=== PATIENT | female | born 1980 ===

== ENCOUNTER 2017-02-26 16:40 | Emergency (ER) | payer MEDICAID ==
[2017-02-26 16:57] VITALS: BP 137/107; PULSE 99; RESP 18; TEMP 99; O2SAT 98
--- NOTE | 2017-02-26 17:25 | ED PDOC ---
HPI: General Adult Time Seen by Provider: 02/26/17 17:03 Chief Complaint (Nursing): Flu-like Symptoms Chief Complaint (Provider): Chills/Myalgias History Per: Patient History/Exam Limitations: no limitations Onset/Duration Of Symptoms: Days (x4) Current Symptoms Are (Timing): Still Present Severity: Moderate Additional Complaint(s): Poonam Horn is a 37 year old female, with no pertinent past medical history, who presents to the ED on 02/26/17 with complaints of moderate chills/myalgias that she has experienced over the past 4 days. An associated mild headache and productive cough also reported (worse at night), though patient denies fever, chest pain or shortness of breath. Patient has been evaluated within this ED for similar complaints in the past but has used the albuterol pump prescribed at that time without relief. Has also medicated with Flonase, Theraflu and Tylenol without improvement. Of note, patient reports that she has been intermittently sick since October 2016. PMD: Antonio Berumen Past Medical History Reviewed: Historical Data, Nursing Documentation, Vital Signs Vital Signs: Last Vital Signs Temp 99 F 02/26/17 16:54 Pulse 99 H 02/26/17 16:54 Resp 18 02/26/17 16:54 BP 137/107 H 02/26/17 16:54 Pulse Ox 98 02/26/17 17:45 - Medical History PMH: No Chronic Diseases - Surgical History Surgical History: Cholecystectomy, - Family History Family History: States: Unknown Family Hx - Immunization History Hx Tetanus Toxoid Vaccination: No Hx Influenza Vaccination: No Hx Pneumococcal Vaccination: No - Home Medications Home Medications: Ambulatory Orders Medication Instructions Recorded Guaifenesin/Pseudoephedrne HCl 1 tab PO DAILY PRN #30 ter 02/26/17 [Mucinex D 600 mg-60 mg] Promethazine HCl/Codeine 5 ml PO HS #80 ml 02/26/17 [Prometh-Codein 6.25-10 mg/5 ml] - Allergies Allergies/Adverse Reactions: Allergies Allergy/AdvReac Type Severity Reaction Status Date / Time No Known Allergies Allergy Unverified 11/18/13 09:55 Review of Systems Constitutional: Positive for: Chills, Other (myalgias). Negative for: Fever Cardiovascular: Negative for: Chest Pain Respiratory: Positive for: Cough (worse at night), Sputum. Negative for: Shortness of Breath Neurological: Positive for: Headache (mild) Physical Exam - Reviewed Nursing Documentation Reviewed: Yes Vital Signs Reviewed: Yes - Physical Exam Appears: Positive for: Non-toxic, No Acute Distress Head Exam: Positive for: ATRAUMATIC, NORMOCEPHALIC Skin: Positive for: Normal Color, Warm, Dry Eye Exam: Positive for: Normal appearance, PERRL ENT: Positive for: Normal ENT Inspection, TM Is/Are (normal b/l). Negative for : Pharyngeal Erythema, Tonsillar Exudate, Tonsillar Swelling Neck: Positive for: Normal, Painless ROM, Supple Cardiovascular/Chest: Positive for: Regular Rate, Rhythm. Negative for: Murmur Respiratory: Positive for: Normal Breath Sounds. Negative for: Respiratory Distress Neurologic/Psych: Positive for: Alert, Oriented - ECG O2 Sat by Pulse Oximetry: 98 (RA) Pulse Ox Interpretation: Normal Medical Decision Making Medical Decision Makin:03 Initial Impression: viral illness 17:40 Patient is medically stable and requires no emergent treatment in the ED at this time. Patient will be discharged home with Rx for promethazine w/codeine and mucinex. Counseling was provided and all questions were answered regarding diagnosis and need for follow up with her PMD. There is agreement to discharge plan. Return if symptoms persist or worsen. Clinical Impression: URI Repeat BP: 132/88 Scribe Attestation: Documented by Audar Norwood, acting as a scribe for Caryl Figueroa PA-C. Provider Scribe Attestation: All medical record entries made by the Scribe were at my direction and personally dictated by me. I have reviewed the chart and agree that the record accurately reflects my personal performance of the history, physical exam, medical decision making, and the department course for this patient. I have also personally directed, reviewed, and agree with the discharge instructions and disposition. Disposition - Clinical Impression Clinical Impression: Upper respiratory infection - Patient ED Disposition Is Patient to be Admitted: No - Disposition Referrals: Antonio Berumen MD [Primary Care Provider] - Disposition: Routine/Home Disposition Time: 17:46 Condition: GOOD Prescriptions: Guaifenesin/Pseudoephedrne HCl [Mucinex D 600 mg-60 mg] 1 tab PO DAILY PRN #30 ter PRN Reason: congestion Promethazine HCl/Codeine [Prometh-Codein 6.25-10 mg/5 ml] 5 ml PO HS #80 ml Instructions: Upper Respiratory Infection (ED) Forms: [facility] ED School/Work Excuse - POA Present On Arrival: None
== END 2017-02-26 17:55 | disposition home or self-care (01) ==
LOC: H.ER 16:40
DX: J06.9 Acute upper respiratory infection, unspecified (principal); R51 Headache